=== PATIENT | female | born 1985 | race Caucasian/White ===

== ENCOUNTER 2016-08-03 22:55 | Emergency (ER) | payer OTHER ==
[~2016-08-03] VITALS: Ht 162.6 cm; Wt 68.0 kg
[2016-08-04 01:05] VITALS: BP 120/77
== END 2016-08-04 02:37 | disposition home or self-care (01) ==
LOC: ER 22:55
DX: K08.89 Other specified disorders of teeth and supporting structures (principal); R51 Headache
CPT/HCPCS: 70486